=== PATIENT | male | born 1970 ===

== ENCOUNTER 2017-11-11 15:17 | Emergency (ER) | payer OTHER ==
[2017-11-11 15:17] VITALS: BMI 26.6
[2017-11-11 15:33] VITALS: RESP 18; O2SAT 99
[2017-11-11] MEDS ORDERED: Emtricitabine-Tenofovir 200 mg-300 mg Tab PO STA (15:47)
[2017-11-11 16:45] LABS: BASO # 0.1 K/uL (0.0-0.2); BASO % 1.1 % (0.0-2.0); EOS # 0.2 K/uL (0.0-0.7); EOS % 3.2 % (0.0-4.0); HEMOGLOBIN 15.2 g/dL (12.0-18.0); LYMPH % 30.9 % (20.0-40.0); MEAN CELL VOLUME 87.5 fl (80.0-94.0); MEAN CORPUSCULAR HEMOGLOBIN 29.6 pg (27.0-31.0); MEAN CORPUSCULAR HGB CONC 33.8 g/dL (33.0-37.0); MEAN PLATELET VOLUME 8.5 fl (7.2-11.7); MONO # 0.6 K/uL (0.0-0.8); NEUT # 3.7 K/uL (1.8-7.0); NEUT % 55.8 % (50.0-75.0); NRBC % 0.1 % (0.0-0.0); RBC 5.14 Mil/uL (4.40-5.90); RED CELL DISTRIBUTION WIDTH 14.2 % (11.5-14.5); WHITE BLOOD COUNT 6.5 K/uL (4.8-10.8)
[2017-11-11 17:02] LABS: ALB/GLOB RATIO 1.6 (1.0-2.1); ALBUMIN 4.3 g/dL (3.5-5.0); ALT/SGPT 46 U/L (21-72); AST/SGOT 36 U/L (17-59); BLOOD UREA NITROGEN 13 mg/dl (9-20); CALCIUM 9.7 mg/dL (8.4-10.2); GFR AFRICAN-AMERICAN > 60; GFR NON-AFRICAN AMERICAN > 60
--- NOTE | 2017-11-11 17:53 | ED PDOC ---
HPI: General Adult Time Seen by Provider: 11/11/17 15:33 Chief Complaint (Nursing): Medical Clearance Chief Complaint (Provider): HIV exposure History Per: Patient History/Exam Limitations: no limitations Onset/Duration Of Symptoms: Days (x3) Additional Complaint(s): 47 year old male presents to the ED for HIV exposure. Patient states that three nights ago, he had unprotected anal intercourse with another male, acting as the insertive partner, despite knowing his partner was HIV positive. Two days ago, he reports developing a herpes outbreak to his genitals and began taking Valtrex, but ran out yesterday. He notes he does not remember the last time he had an HIV test and his requesting one along with post exposure prophylaxis. Otherwise, denies fever, abdominal pain, and penile injury. PMD: Danyel Faith Past Medical History Reviewed: Historical Data, Nursing Documentation, Vital Signs Vital Signs: Last Vital Signs Temp 98 F 11/11/17 19:00 Pulse 86 11/11/17 19:00 Resp 18 11/11/17 19:00 BP 130/89 11/11/17 19:00 Pulse Ox 99 11/11/17 19:00 - Medical History PMH: Depression, HTN, Hypercholesterolemia, Sexually Transmitted Disease (Herpes ) - Surgical History Surgical History: No Surg Hx - Family History Family History: States: CAD - Social History Current smoker - smoking cessation education provided: No Alcohol: None Drugs: Denies - Home Medications Home Medications: Ambulatory Orders Medication Instructions Recorded [place] Carbonate [[place] 300 mg PO DAILY 12/04/16 Carbonate 300MG] Losartan Potassium 25 mg PO 12/04/16 Modafinil [Provigil] 100 mg PO DAILY 12/04/16 Omeprazole 20 mg PO DAILY 12/04/16 Quetiapine Fumarate [Quetiapine 400 mg PO 12/04/16 Fumarate ER] Levofloxacin [Levaquin] 500 mg PO DAILY #10 tablet 12/22/16 Naproxen [Naprosyn] 500 mg PO BID PRN #30 tab 12/22/16 Dolutegravir Sodium [Tivicay] 1 tab PO DAILY #27 tab 11/11/17 Emtricitabine/Tenofovir (Tdf) 1 tab PO DAILY #27 tablet 11/11/17 [Truvada 200 mg-300 mg Tablet] Famotidine [Pepcid] 40 mg PO DAILY PRN #30 tab 11/11/17 valACYclovir [Valtrex] 500 mg PO BID #7 tab 11/11/17 - Allergies Allergies/Adverse Reactions: Allergies Allergy/AdvReac Type Severity Reaction Status Date / Time No Known Allergies Allergy Verified 12/04/16 08:15 Review of Systems ROS Statement: Except As Marked, All Systems Reviewed And Found Negative Constitutional: Negative for: Fever Gastrointestinal: Negative for: Abdominal Pain Genitourinary Male: Positive for: Other (herpes outbreak, HIV exposure). Negative for: Penile Pain Physical Exam - Reviewed Nursing Documentation Reviewed: Yes Vital Signs Reviewed: Yes - Physical Exam Appears: Positive for: No Acute Distress Skin: Positive for: Normal Color, Warm, Dry Gastrointestinal/Abdominal: Positive for: Normal Exam, Soft. Negative for: Tenderness Neurologic/Psych: Positive for: Alert, Oriented (x3) - Laboratory Results Result Diagrams: 11/11/17 16:30 11/11/17 16:30 - ECG O2 Sat by Pulse Oximetry: 99 (RA) Pulse Ox Interpretation: Normal - Progress ED Course And Treament: Pt. is also requesting refill of his Valtrex 500mg BID. Medical Decision Making Medical Decision Making: Time: 1546 Initial Impression: HIV exposure Initial Plan: --CMP --CBC with differential --Pepcid 40 mg PO --Tivicay 50 mg PO --Truvada 1 tab PO --Rapid HIV screen As per Boubacar sandoval pharmacist, post exposure prophylaxis consists of Tivicay and Truvada for 28 days. Patient made aware of negative HIV results at this time , and all questions were answered. Scribe Attestation: Documented by Katrina Forte acting as a scribe for Rico Marrero PA-C. Provider Scribe Attestation: All medical record entries made by the Scribe were at my direction and personally dictated by me. I have reviewed the chart and agree that the record accurately reflects my personal performance of the history, physical exam, medical decision making, and the department course for this patient. I have also personally directed, reviewed, and agree with the discharge instructions and disposition. Disposition - Clinical Impression Clinical Impression: History of exposure to HIV - Patient ED Disposition Is Patient to be Admitted: Yes - Disposition Referrals: [facility] [Outside] Disposition: Routine/Home Disposition Time: 19:00 Condition: STABLE Additional Instructions: CARLOS VAUGHAN, thank you for letting us take care of you today. Your provider was Dolores Shipley MD and you were treated for POSS HIV. The emergency medical care you received today was directed at your acute symptoms. If you were prescribed any medication, please fill it and take as directed. It may take several days for your symptoms to resolve. Return to the Emergency Department if your symptoms worsen, do not improve, or if you have any other problems. Please contact your doctor or call one of the physicians/clinics you have been referred to that are listed on the Patient Visit Information form that is included in your discharge packet. Bring any paperwork you were given at discharge with you along with any medications you are taking to your follow up visit. Our treatment cannot replace ongoing medical care by a primary care provider outside of the emergency department. Thank you for allowing the [facility] team to be part of your care today. If you had an X-Ray or CT scan: A Radiologist will review the ED reading if any change in treatment is needed we will contact you. If you had a blood, urine, or wound culture: It will take several days for the results, if any change in treatment is needed we will contact you. If you had an STI test: It will take 48 hours for the results. Please call after 1 week if you have not heard back. Prescriptions: Dolutegravir Sodium [Tivicay] 1 tab PO DAILY #27 tab Emtricitabine/Tenofovir (Tdf) [Truvada 200 mg-300 mg Tablet] 1 tab PO DAILY #27 tablet Famotidine [Pepcid] 40 mg PO DAILY PRN #30 tab PRN Reason: Dyspepsia valACYclovir [Valtrex] 500 mg PO BID #7 tab Instructions: HIV/AIDS (DC), Starting Treatment for HIV, HIV Testing Forms: [facility] (Cook Islander) Print Language: YI
[2017-11-11 19:01] VITALS: BP 130/89; PULSE 86; TEMP 98
== END 2017-11-11 19:00 | disposition home or self-care (01) ==
LOC: H.ER 15:17
DX: Z20.6 Contact with and (suspected) exposure to human immunodeficiency virus [HIV] (principal)

== ENCOUNTER 2017-11-14 07:19 | Emergency (ER) | payer OTHER ==
[2017-11-14 07:30] VITALS: BP 118/78; PULSE 100; O2SAT 98; BMI 27.2
--- NOTE | 2017-11-14 07:50 | ED PDOC ---
HPI: CCC, URI, Sore Throat Time Seen by Provider: 11/14/17 07:42 Chief Complaint (Nursing): ENT Problem Chief Complaint (Provider): Throat pain History Per: Patient History/Exam Limitations: no limitations Have you had recent travel within the past 21 days to any of the following countries: [place], [place], [place] or [place]?: No Onset/Duration Of Symptoms: Days (3) Current Symptoms Are (Timing): Still Present Location Of Pain: Ear(s), Throat (right ) Associated Symptoms: Sore Throat. denies: Fever, Chills, Cough, Sputum, Myalgias, Nasal Congestion, Nausea, Vomiting, Diarrhea Additional History Per: Patient Additional Complaint(s): 47yo male, no past medical history, comes to ER with complaint of right sided throat pain radiating to his right ear x 3 days. Patient denies any associated fever, chills, nasal congestion or drainage, or cough. He reports concern as he was recently exposed to HIV through sexual contact; patient is currently taking prophylactic medication. Patient denies swimming recently or putting Q-tips in his ears. He offers no additional medical complaints. Past Medical History Reviewed: Historical Data, Nursing Documentation, Vital Signs Vital Signs: Last Vital Signs Temp 97 F L 11/14/17 07:29 Pulse 100 H 11/14/17 07:29 Resp BP 118/78 11/14/17 07:29 Pulse Ox 98 11/14/17 08:29 - Medical History PMH: Depression, HTN, Hypercholesterolemia, Sexually Transmitted Disease (Herpes ), Sleep Apnea Comment Only: HIV (exposed through sexual contact 11/08/17) - Surgical History Surgical History: No Surg Hx - Family History Family History: States: CAD - Social History Alcohol: Social - Immunization History Hx Tetanus Toxoid Vaccination: Yes Hx Influenza Vaccination: Yes Hx Pneumococcal Vaccination: No - Home Medications Home Medications: Ambulatory Orders Medication Instructions Recorded [place] Carbonate [[place] 300 mg PO DAILY 12/04/16 Carbonate 300MG] Losartan Potassium 25 mg PO 12/04/16 Modafinil [Provigil] 100 mg PO DAILY 12/04/16 Omeprazole 20 mg PO DAILY 12/04/16 Quetiapine Fumarate [Quetiapine 400 mg PO 12/04/16 Fumarate ER] Levofloxacin [Levaquin] 500 mg PO DAILY #10 tablet 12/22/16 Naproxen [Naprosyn] 500 mg PO BID PRN #30 tab 12/22/16 Dolutegravir Sodium [Tivicay] 1 tab PO DAILY #27 tab 11/11/17 Emtricitabine/Tenofovir (Tdf) 1 tab PO DAILY #27 tablet 11/11/17 [Truvada 200 mg-300 mg Tablet] Famotidine [Pepcid] 40 mg PO DAILY PRN #30 tab 11/11/17 valACYclovir [Valtrex] 500 mg PO BID #7 tab 11/11/17 Lidocaine 2% Viscous 10 ml MM Q4H PRN #1 bottle 11/14/17 - Allergies Allergies/Adverse Reactions: Allergies Allergy/AdvReac Type Severity Reaction Status Date / Time No Known Allergies Allergy Verified 12/04/16 08:15 Review of Systems ROS Statement: Except As Marked, All Systems Reviewed And Found Negative Constitutional: Negative for: Fever, Chills ENT: Positive for: Ear Pain, Throat Pain. Negative for: Nose Discharge, Nose Congestion Cardiovascular: Negative for: Chest Pain Respiratory: Negative for: Cough Physical Exam - Reviewed Nursing Documentation Reviewed: Yes Vital Signs Reviewed: Yes - Physical Exam Appears: Positive for: Non-toxic, No Acute Distress Head Exam: Positive for: ATRAUMATIC, NORMAL INSPECTION, NORMOCEPHALIC Skin: Positive for: Normal Color Eye Exam: Positive for: Normal appearance ENT: Positive for: Normal ENT Inspection, Pharynx Is (clear; uvula is midline), TM Is/Are (clear bilaterally), Other ((-) tragal tenderness; (-) mastoid tenderness). Negative for: Pharyngeal Erythema, Tonsillar Exudate, Tonsillar Swelling Neck: Positive for: Supple (tenderness to palpation on right anterior neck; sensitive to touch) Cardiovascular/Chest: Positive for: Regular Rate, Rhythm Respiratory: Positive for: Normal Breath Sounds Lymphatic: Negative for: Adenopathy Neurologic/Psych: Positive for: Alert, Oriented - ECG O2 Sat by Pulse Oximetry: 98 (RA) Pulse Ox Interpretation: Normal - Progress Condition: Improving,but remains with symptoms (Rapid Strep is negative. Throat culture pending. will discharge) Medical Decision Making Medical Decision Making: Impression: Throat pain Plan: -- Rapid strep -- Magic Mouthwash 15ml PO Scribe Attestation: Documented by Tamara Carlson, acting as a scribe for Shireen Lerner MD. Provider Scribe Attestation: All medical record entries made by the Scribe were at my direction and personally dictated by me. I have reviewed the chart and agree that the record accurately reflects my personal performance of the history, physical exam, medical decision making, and the department course for this patient. I have also personally directed, reviewed, and agree with the discharge instructions and disposition. Disposition - Clinical Impression Clinical Impression: Sore throat - Patient ED Disposition Is Patient to be Admitted: No Doctor Will See Patient In The: Office Counseled Patient/Family Regarding: Diagnosis, Need For Followup, Rx Given - Disposition Referrals: [facility] [Outside] Disposition: Routine/Home Disposition Time: 08:20 Condition: STABLE Additional Instructions: Thank you for letting us take care of you today. The emergency medical care you received today was directed at your acute symptoms. If you were prescribed any medication, please fill it and take as directed. It may take several days for your symptoms to resolve. Return to the Emergency Department if your symptoms worsen, do not improve, or if you have any other problems. Please contact your doctor or call one of the physicians/clinics you have been referred to that are listed on the Patient Visit Information form that is included in your discharge packet. Bring any paperwork you were given at discharge with you along with any medications you are taking to your follow up visit. Our treatment cannot replace ongoing medical care by a primary care provider outside of the emergency department. Thank you for allowing the [facility] team to be part of your care today. If you had an X-Ray or CT scan: A Radiologist will review the ED reading if any change in treatment is needed we will contact you. If you had a blood, urine, or wound culture: It will take several days for the results, if any change in treatment is needed we will contact you. If you had an STI test: It will take 48 hours for the results. Please call after 1 week if you have not heard back. Prescriptions: Lidocaine 2% Viscous 10 ml MM Q4H PRN #1 bottle PRN Reason: Sore Throat Instructions: Sore Throat in Adults Forms: [facility] (Togolese)
[2017-11-14] MEDS ORDERED: Mag&Al/Simet/Diphen/Lido 237 ML KIT PO STA (07:53)
[2017-11-14 08:44] VITALS: TEMP 98.7
== END 2017-11-14 08:44 | disposition home or self-care (01) ==
LOC: H.ER 07:19
DX: J02.9 Acute pharyngitis, unspecified (principal)

== ENCOUNTER 2017-12-24 14:43 | Emergency (ER) | payer BC, OTHER ==
[2017-12-24 14:44] VITALS: BMI 27.2
[2017-12-24] MEDS ORDERED: Sodium Chloride 0.9% 1,000 ML IV STA (15:15)
--- NOTE | 2017-12-24 15:32 | ED PDOC ---
HPI: Hypertension/Hypotension Time Seen by Provider: 12/24/17 14:59 Chief Complaint (Nursing): Palpitations Chief Complaint (Provider): palpitations History Per: Patient History/Exam Limitations: no limitations Onset/Duration Of Symptoms: Days (x3) Current Symptoms Are (Timing): Still Present Associated Symptoms: denies: Chest Pain, Dyspnea, Dizziness Additional Complaint(s): Margot Rasheed is a 47 year old male, with a past medical history of HTN, who was referred to the emergency department by PMD for palpitations onset for x3 days. Patient has a heart monitor at home which indicates palpitations intermittently throughout the day. He reports travelling to [facility] by plane x1 month ago but denies any leg pain or swelling. Patient denies any dizziness, shortness of breath or occasional sharp chest pains during episodes of palpitations. PMD: Danyel Faith Past Medical History Reviewed: Historical Data, Nursing Documentation, Vital Signs Vital Signs: Last Vital Signs Temp 97.8 F 12/24/17 14:48 Pulse 118 H 12/24/17 14:48 Resp 18 12/24/17 14:48 BP 145/94 H 12/24/17 14:48 Pulse Ox 99 12/24/17 14:48 - Medical History PMH: Depression, HTN, Hypercholesterolemia, Sexually Transmitted Disease (Herpes ), Sleep Apnea Comment Only: HIV (exposed through sexual contact 11/08/17) - Surgical History Surgical History: No Surg Hx - Family History Family History: States: CAD - Immunization History Hx Tetanus Toxoid Vaccination: Yes Hx Influenza Vaccination: Yes Hx Pneumococcal Vaccination: No - Home Medications Home Medications: Ambulatory Orders Medication Instructions Recorded [place] Carbonate [[place] 300 mg PO DAILY 12/04/16 Carbonate 300MG] Losartan Potassium 25 mg PO 12/04/16 Modafinil [Provigil] 100 mg PO DAILY 12/04/16 Omeprazole 20 mg PO DAILY 12/04/16 Quetiapine Fumarate [Quetiapine 400 mg PO 12/04/16 Fumarate ER] Levofloxacin [Levaquin] 500 mg PO DAILY #10 tablet 12/22/16 Naproxen [Naprosyn] 500 mg PO BID PRN #30 tab 12/22/16 Dolutegravir Sodium [Tivicay] 1 tab PO DAILY #27 tab 11/11/17 Emtricitabine/Tenofovir (Tdf) 1 tab PO DAILY #27 tablet 11/11/17 [Truvada 200 mg-300 mg Tablet] Famotidine [Pepcid] 40 mg PO DAILY PRN #30 tab 11/11/17 valACYclovir [Valtrex] 500 mg PO BID #7 tab 11/11/17 Lidocaine 2% Viscous 10 ml MM Q4H PRN #1 bottle 11/14/17 Atenolol [Tenormin] 50 mg PO DAILY #30 tablet 12/24/17 - Allergies Allergies/Adverse Reactions: Allergies Allergy/AdvReac Type Severity Reaction Status Date / Time No Known Allergies Allergy Verified 12/04/16 08:15 Review of Systems ROS Statement: Except As Marked, All Systems Reviewed And Found Negative Cardiovascular: Positive for: Palpitations. Negative for: Chest Pain Respiratory: Negative for: Shortness of Breath Musculoskeletal: Negative for: Leg Pain (or swelling) Neurological: Negative for: Dizziness Physical Exam - Reviewed Nursing Documentation Reviewed: Yes Vital Signs Reviewed: Yes - Physical Exam Appears: Positive for: No Acute Distress Head Exam: Positive for: ATRAUMATIC, NORMOCEPHALIC Skin: Positive for: Normal Color, Warm, Dry Eye Exam: Positive for: Normal appearance, EOMI, PERRL Neck: Positive for: Painless ROM Cardiovascular/Chest: Positive for: Tachycardia (at 115 with occasional PVCs noted on monitor) Respiratory: Positive for: Normal Breath Sounds. Negative for: Respiratory Distress Gastrointestinal/Abdominal: Positive for: Normal Exam, Soft. Negative for: Tenderness, Guarding, Rebound Back: Positive for: Normal Inspection Extremity: Positive for: Normal ROM (upper and lower extremities). Negative for : Deformity Neurologic/Psych: Positive for: Alert, Oriented. Negative for: Motor/Sensory Deficits - Laboratory Results Result Diagrams: 12/24/17 15:36 12/24/17 15:36 - ECG O2 Sat by Pulse Oximetry: 99 (RA) Pulse Ox Interpretation: Normal Medical Decision Making Medical Decision Making: Time: 14:59 Initial Plan: --EKG --CMP --Troponin I --CBC w/ differential --D Dimer --Sodium Chloride 1,000 ml IV 150 mls/hr --Urinalysis --Reevaluation Discussed with Dr. Faith. EKG reveals sinus tachycardia with occasional PVCs. Nl Trop and d -dimer. Asks to switch Losartan to [id number] mg daily and follow up in office. ----- Scribe Attestation: Documented by Anjel Bonds, acting as a scribe for Franco Victor MD. Provider Scribe Attestation: All medical record entries made by the Scribe were at my direction and personally dictated by me. I have reviewed the chart and agree that the record accurately reflects my personal performance of the history, physical exam, medical decision making, and the department course for this patient. I have also personally directed, reviewed, and agree with the discharge instructions and disposition. Disposition - Clinical Impression Clinical Impression: Palpitations - Patient ED Disposition Is Patient to be Admitted: No Counseled Patient/Family Regarding: Studies Performed, Diagnosis, Need For Followup, Rx Given - Disposition Referrals: Danyel Faith MD [Family Provider] - Disposition: Routine/Home Disposition Time: 16:41 Condition: FAIR Prescriptions: Atenolol [Tenormin] 50 mg PO DAILY #30 tablet Instructions: Palpitations Forms: [employer] [facility] (Croatian)
[2017-12-24 15:43] LABS: BASO # 0.1 K/uL (0.0-0.2); BASO % 1.1 % (0.0-2.0); EOS # 0.2 K/uL (0.0-0.7); EOS % 3.2 % (0.0-4.0); HEMOGLOBIN 14.7 g/dL (12.0-18.0); LYMPH # 1.8 K/uL (1.0-4.3); LYMPH % 24.1 % (20.0-40.0); MEAN CELL VOLUME 87.1 fl (80.0-94.0); MEAN CORPUSCULAR HEMOGLOBIN 29.8 pg (27.0-31.0); MEAN CORPUSCULAR HGB CONC 34.3 g/dL (33.0-37.0); MEAN PLATELET VOLUME 8.4 fl (7.2-11.7); MONO # 0.5 K/uL (0.0-0.8); MONO % 6.2 % (0.0-10.0); NEUT # 4.9 K/uL (1.8-7.0); NEUT % 65.4 % (50.0-75.0); RBC 4.91 Mil/uL (4.40-5.90); RED CELL DISTRIBUTION WIDTH 14.9 % (11.5-14.5); WHITE BLOOD COUNT 7.5 K/uL (4.8-10.8)
[2017-12-24 16:00] LABS: URINE BILIRUBIN NEGATIVE (NEGATIVE); URINE BLOOD MODERATE (NEGATIVE); URINE CLARITY CLEAR (Clear); URINE COLOR YELLOW (YELLOW); URINE GLUCOSE (UA) NEG (Normal); URINE LEUKOCYTE ESTERASE NEG Leu/uL (Negative); URINE PROTEIN NEGATIVE (NEGATIVE); URINE UROBILINOGEN 0.2-1.0 mg/dL (0.2-1.0)
[2017-12-24 16:08] LABS: ALB/GLOB RATIO 1.3 (1.0-2.1); ALBUMIN 4.1 g/dL (3.5-5.0); BLOOD UREA NITROGEN 17 mg/dl (9-20); GFR NON-AFRICAN AMERICAN > 60
[2017-12-24 16:15] LABS: ALT/SGPT 74 U/L (21-72); AST/SGOT 45 U/L (17-59)
[2017-12-24] MEDS ORDERED: Potassium Chloride 20 mEq ER Tab PO ONE ×2 (16:18→16:47)
[2017-12-24 16:53] VITALS: BP 133/74; PULSE 102; RESP 16; TEMP 98.1; O2SAT 100
--- NOTE | 2017-12-24 17:52 | RAD ---
Date of service: 12/24/2017 HISTORY: Cough. COMPARISON: No prior. FINDINGS: LUNGS: No active pulmonary disease. PLEURA: No significant pleural effusion identified, no pneumothorax apparent. CARDIOVASCULAR: No radiographic findings to suggest acute or significant cardiovascular disease. OSSEOUS STRUCTURES: No significant abnormalities. VISUALIZED UPPER ABDOMEN: Normal. OTHER FINDINGS: None. IMPRESSION: No active disease.
--- NOTE | 2017-12-25 09:17 | CARD ---
APPROVED REPORT Date of service: 12/24/2017 <Conclusion> Sinus tachycardia Otherwise normal ECG
== END 2017-12-24 16:53 | disposition home or self-care (01) ==
LOC: H.ER 14:43
DX: R00.2 Palpitations (principal); I10 Essential (primary) hypertension; Z86.59 Personal history of other mental and behavioral disorders; Z82.49 Family history of ischemic heart disease and other diseases of the circulatory system
CPT/HCPCS: 71045; 80053; 81003; 84484; 85025; 85378; 93005; 99283; J7030

== ENCOUNTER 2018-02-06 11:27 | Inpatient (IN) | payer OTHER ==
[2018-02-06 11:27] VITALS: BMI 27.2
[2018-02-06 11:45] VITALS: O2SAT 98
--- NOTE | 2018-02-06 12:07 | ED PDOC ---
HPI: Psych/Substance Abuse Time Seen by Provider: 02/06/18 11:47 Chief Complaint (Nursing): Psychiatric Evaluation Chief Complaint (Provider): Psychiatric Evaluation History Per: Patient History/Exam Limitations: no limitations Onset/Duration Of Symptoms: Days (x2) Current Symptoms Are (Timing): Still Present Additional Complaint(s): 47 year old male presenting for evaluation of anxiety x2 days. Patient states he has been unable to sleep for the past 2 days because he ran out of Seroquel. Patient denies any suicidal or homicidal ideations and auditory or visual zaina lucinations. Past Medical History Reviewed: Historical Data, Nursing Documentation, Vital Signs Vital Signs: Last Vital Signs Temp 97.9 F 02/06/18 11:39 Pulse 89 02/06/18 11:39 Resp 16 02/06/18 11:39 BP 155/83 H 02/06/18 11:39 Pulse Ox 98 02/06/18 11:39 - Medical History PMH: Depression, HTN, Hypercholesterolemia, Sexually Transmitted Disease (Herpes), Sleep Apnea Comment Only: HIV (exposed through sexual contact 11/08/17) - Surgical History Surgical History: No Surg Hx - Family History Family History: States: CAD - Immunization History Hx Tetanus Toxoid Vaccination: Yes Hx Influenza Vaccination: Yes Hx Pneumococcal Vaccination: No - Home Medications Home Medications: Ambulatory Orders Medication Instructions Recorded [place] Carbonate [[place] 300 mg PO DAILY 12/04/16 Carbonate 300MG] Losartan Potassium 25 mg PO 12/04/16 Modafinil [Provigil] 100 mg PO DAILY 12/04/16 Omeprazole 20 mg PO DAILY 12/04/16 Quetiapine Fumarate [Quetiapine 400 mg PO 12/04/16 Fumarate ER] Levofloxacin [Levaquin] 500 mg PO DAILY #10 tablet 12/22/16 Naproxen [Naprosyn] 500 mg PO BID PRN #30 tab 12/22/16 Dolutegravir Sodium [Tivicay] 1 tab PO DAILY #27 tab 11/11/17 Emtricitabine/Tenofovir (Tdf) 1 tab PO DAILY #27 tablet 11/11/17 [Truvada 200 mg-300 mg Tablet] Famotidine [Pepcid] 40 mg PO DAILY PRN #30 tab 11/11/17 valACYclovir [Valtrex] 500 mg PO BID #7 tab 11/11/17 Lidocaine 2% Viscous 10 ml MM Q4H PRN #1 bottle 11/14/17 Atenolol [Tenormin] 50 mg PO DAILY #30 tablet 12/24/17 - Allergies Allergies/Adverse Reactions: Allergies Allergy/AdvReac Type Severity Reaction Status Date / Time No Known Allergies Allergy Verified 02/06/18 11:35 Review of Systems ROS Statement: Except As Marked, All Systems Reviewed And Found Negative Psych: Positive for: Anxiety. Negative for: Psychosis, Suicidal ideation Physical Exam - Reviewed Nursing Documentation Reviewed: Yes Vital Signs Reviewed: Yes - Physical Exam Appears: Positive for: Well, Non-toxic, No Acute Distress Head Exam: Positive for: ATRAUMATIC, NORMAL INSPECTION, NORMOCEPHALIC Skin: Positive for: Normal Color, Warm, Dry. Negative for: Rash Eye Exam: Positive for: EOMI, Normal appearance, PERRL ENT: Positive for: Normal ENT Inspection Neck: Positive for: Normal, Painless ROM, Supple Cardiovascular/Chest: Positive for: Regular Rate, Rhythm. Negative for: Murmur Respiratory: Positive for: Normal Breath Sounds. Negative for: Respiratory Distress Gastrointestinal/Abdominal: Positive for: Normal Exam, Soft. Negative for: Tenderness Back: Positive for: Normal Inspection. Negative for: L CVA Tenderness, R CVA Tenderness, Vertebral Tenderness Extremity: Positive for: Normal ROM. Negative for: Pedal Edema, Deformity Neurologic/Psych: Positive for: Alert, Oriented. Negative for: Motor/Sensory Deficits - ECG O2 Sat by Pulse Oximetry: 98 (RA) Pulse Ox Interpretation: Normal Medical Decision Making Medical Decision Making: Scribe Attestation: Documented by Omega Nix, acting as a scribe for Franco Victor MD. Provider Scribe Attestation: All medical record entries made by the Scribe were at my direction and personally dictated by me. I have reviewed the chart and agree that the record accurately reflects my personal performance of the history, physical exam, medical decision making, and the department course for this patient. I have also personally directed, reviewed, and agree with the discharge instructions and disposition. Medically stable for psychiatric admission Disposition - Clinical Impression Clinical Impression: Depression - Patient ED Disposition Is Patient to be Admitted: Yes - Disposition Disposition Time: 12:31 Condition: FAIR Forms: [facility] (Czech) - Pt Status Changed To: Hospital Disposition Of: Inpatient - Admit Certification Admit to Inpatient:: After my assessment, the patient will require hospitalization for at least two midnights. This is because of the severity of symptoms shown, intensity of services needed, and/or the medical risk in this patient being treated as an outpatient. - POA Present On Arrival: None
[2018-02-06 12:54] LABS: BASO # 0.1 K/uL (0.0-0.2); EOS # 0.1 K/uL (0.0-0.7); HEMOGLOBIN 15.7 g/dL (12.0-18.0); LYMPH # 1.4 K/uL (1.0-4.3); LYMPH % 20.7 % (20.0-40.0); MEAN CELL VOLUME 88.3 fl (80.0-94.0); MEAN CORPUSCULAR HEMOGLOBIN 29.8 pg (27.0-31.0); MEAN CORPUSCULAR HGB CONC 33.7 g/dL (33.0-37.0); MEAN PLATELET VOLUME 7.8 fl (7.2-11.7); MONO # 0.4 K/uL (0.0-0.8); MONO % 5.6 % (0.0-10.0); NEUT # 4.8 K/uL (1.8-7.0); NEUT % 71.7 % (50.0-75.0); NRBC % 0.1 % (0.0-0.0); RBC 5.28 Mil/uL (4.40-5.90); WHITE BLOOD COUNT 6.7 K/uL (4.8-10.8)
[2018-02-06 12:59] LABS: ALB/GLOB RATIO 1.4 (1.0-2.1); ALBUMIN 4.4 g/dL (3.5-5.0); ALT/SGPT 48 U/L (21-72); AST/SGOT 41 U/L (17-59); BLOOD UREA NITROGEN 13 mg/dl (9-20); CALCIUM 9.7 mg/dL (8.4-10.2); GFR NON-AFRICAN AMERICAN > 60
[2018-02-06 13:36] LABS: PHENCYCLIDINE, UR NEGATIVE (NEGATIVE)
--- NOTE | 2018-02-06 13:45 | RAD ---
Date of service: 02/06/2018 HISTORY: cough COMPARISON: Chest radiograph dated 12/24/2017. FINDINGS: LUNGS: No active pulmonary disease. PLEURA: No significant pleural effusion identified, no pneumothorax apparent. CARDIOVASCULAR: No aortic atherosclerotic calcification present. Normal cardiac size. No pulmonary vascular congestion. OSSEOUS STRUCTURES: No significant abnormalities. VISUALIZED UPPER ABDOMEN: Normal. OTHER FINDINGS: None. IMPRESSION: No active disease.
[2018-02-06] MEDS ORDERED: Alum-Mag Hydrox-Simethicone Susp (30 mL) PO PRN (13:47)
[2018-02-06] MEDS ORDERED: DiphenhydrAMINE 50 mg/ml Inj IM PRN (13:47)
[2018-02-06] MEDS ORDERED: Magnesium Hydroxide Susp 30 ml UD PO PRN (13:47)
[2018-02-06 13:56] LABS: BARBITURATES, UR NEGATIVE (NEGATIVE); BENZODIAZEPINES, UR NEGATIVE (NEGATIVE); OPIATES, UR NEGATIVE (NEGATIVE)
--- NOTE | 2018-02-06 16:34 | PCM.BM ---
<NikkipieterMeaghan - Last Filed: 02/06/18 16:31> Treatment Plan Problems - Problems identified on initial assessmt Hopelessness/Helplessness Date Initiated: 02/06/18 Time Initiated: 16:32 Assessment reference: NA Status: Active Medication nonadherence Date Initiated: 02/06/18 Time Initiated: 16:34 Assessment reference: NA Status: Active Treatment assets and liabiliti Patient Assests: adapts well, cooperative, motivated, ADL independent, cognitively intact Patient Liabilities: live alone, financial problems, poor support system - Milieu Protocol Maintain good personal hygiene: daily Encourage regular showers, daily Remind patient to perform daily oral care, daily Assist patient to perform ADL's Conduct patient checks and document Observation sheet: Q15 minutes Maintain personal safety: every shift Educate patient to report safety concerns to staff, every shift Monitor environment for contraband/sharps Medication safety: Monitor for expected outcome, potential side effects: every shift, Assess barriers to learning: every shift, Assess readiness for medication education: every shift <Nilda Seth - Last Filed: 02/07/18 11:30> - Diagnosis (1) Bipolar disorder Status: Acute Interventions: Medication management, Individual and group therapy, Psychoeducation 02/07/18 11:30
--- NOTE | 2018-02-07 06:56 | CARD ---
APPROVED REPORT Date of service: 02/06/2018 EKG Measurement Heart [id number] <Conclusion> Normal sinus rhythm Normal ECG
[2018-02-07 07:30] LABS: BASO # 0.1 K/uL (0.0-0.2); EOS # 0.1 K/uL (0.0-0.7); EOS % 2.6 % (0.0-4.0); HEMOGLOBIN 14.9 g/dL (12.0-18.0); LYMPH # 2.3 K/uL (1.0-4.3); LYMPH % 41.2 % (20.0-40.0); MEAN CORPUSCULAR HEMOGLOBIN 29.6 pg (27.0-31.0); MEAN CORPUSCULAR HGB CONC 33.7 g/dL (33.0-37.0); MONO # 0.5 K/uL (0.0-0.8); MONO % 9.4 % (0.0-10.0); NEUT # 2.5 K/uL (1.8-7.0); NEUT % 45.8 % (50.0-75.0); NRBC % 0.1 % (0.0-0.0); RBC 5.05 Mil/uL (4.40-5.90); RED CELL DISTRIBUTION WIDTH 13.8 % (11.5-14.5); WHITE BLOOD COUNT 5.5 K/uL (4.8-10.8)
[2018-02-07 08:04] LABS: T4 5.89 ug/dl (5.5-11.0)
[2018-02-07] MEDS: Pantoprazole 40 mg EC Tab PO SCH (08:31)
--- NOTE | 2018-02-07 10:12 | PCM.PSYCH ---
Initial Psychiatric Evaluation - Initial Psychiatric Evaluation Type of Admission: Voluntary Legal Status: Capacity Chief Complaint (in patient's own words): "I'm depressed." Patient's Reaction to Hospitalization: HPI: 47 yo male w/ h/o Depressive Disorder vs. Bipolar Disorder, presents w/ worsening depression, poor sleep, feelings of helplessness, poor concentration, lack of motivation and intermittent suicidal ideation w/o plan or intent. No AH/VH/paranoia/delusions. Patient recently ran out of his [employer]. Patient submitted a 48 hour letter, stating that he can not be in the hospital for an extended period of time because he has to work. PPHx: No past psychiatric admissions, h/o treatment with various antidepressants (including Zoloft and Wellbutrin) and mood stabilizers ([place], Depakote, Seroquel). PMHx: Sleep apnea, HTN, GERD ALL: NKDA SHx: Denies drugs/ etoh/ cig use; lives alone Current Medications: Active Medications Generic Name Dose Route Start Last Admin Trade Name Freq PRN Reason Stop Dose Admin Acetaminophen 650 mg 02/06/18 13:47 Tylenol 325mg Tab PO Q4 PRN Pain, moderate (4-7) Al Hydrox/Mg Hydrox/Simethicone 30 ml 02/06/18 13:47 Maalox Plus 30 Ml PO Q4 PRN Dyspepsia Atenolol 25 mg 02/07/18 09:00 02/07/18 08:31 Tenormin PO 25 mg DAILY NICOLÁS Administration Diphenhydramine HCl 50 mg 02/06/18 13:47 Benadryl IM Q6 PRN Extrapyramidal S/S Unable PO Diphenhydramine HCl 50 mg 02/06/18 13:47 Benadryl PO Q6 PRN Extrapyramidal Symptoms Diphenhydramine HCl 50 mg 02/06/18 22:03 02/06/18 22:14 Benadryl PO 50 mg HS PRN Administration Sleep Haloperidol 5 mg 02/06/18 13:47 Haldol PO Q4 PRN Agitation Haloperidol Lactate 5 mg 02/06/18 13:47 Haldol IM Q4 PRN Agitation, Unable to Take PO Lorazepam 2 mg 02/06/18 13:47 Ativan IM Q4 PRN Anxiety/Agitation,Unable PO Lorazepam 2 mg 02/06/18 14:15 Ativan PO Q4 PRN Anxiety/Agitation Losartan Potassium 25 mg 02/07/18 09:00 02/07/18 08:31 Cozaar PO 25 mg DAILY NICOLÁS Administration Magnesium Hydroxide 30 ml 02/06/18 13:47 Milk Of Magnesia PO HS PRN Constipation Pantoprazole Sodium 40 mg 02/07/18 09:00 02/07/18 08:31 Protonix Ec Tab PO 40 mg DAILY NICOLÁS Administration Quetiapine Fumarate 300 mg 02/06/18 22:00 02/06/18 21:15 Seroquel PO 300 mg HS NICOLÁS Administration Past Psychiatric History - Past Psychiatric History Pertinent Medical Hx (Current Medical&Sleep Prob, Allergies): Allergies Allergy/AdvReac Type Severity Reaction Status Date / Time No Known Allergies Allergy Verified 02/06/18 11:35 Atenolol [Tenormin] 25 mg PO DAILY 02/06/18 Losartan [Cozaar] 25 mg PO DAILY 02/06/18 Pantoprazole Sodium [Protonix] 40 mg PO DAILY 02/06/18 Quetiapine Fumarate [Seroquel] 600 mg PO HS 02/06/18 Review of Systems - Psychiatric Psychiatric: As Per HPI, Abnormal Sleep Pattern, Anxiety, Change in Appetite, Depression, Difficulty Concentrating, Hopelessness, Irritability, Mood Swings, Panic Attacks, Suicidal Ideation Mental Status Examination - Personal Presentation Personal Presentation: Looks stated age - Affect Affect: Constricted, Depressed - Motor Activity Motor Activity: Calm - Reliability in Providing Information Reliability in Providing Information: Fair - Speech Speech: Organized - Mood Mood: Depressed - Formal Thought Process Formal Thought Process: No Impairment - Hallucinations/Delusions Additional comments: No AH/VH/paranoia/delusions - Obsessions/Compulsions Obsessions: No Compulsions: No - Cognitive Functions Orientation: Person, Place, Situation, Time Sensorium: Alert Attention/Concentration: Attentive Estimate of Intelligence: Average Judgement: Intact, as evidence by: Insight regarding need for hospitalization Memory: Recent intact, as evidence by: Ability to recall events of the day - Risk Risk: Suicidal - Strength & Assets Inventory Strength & Assets Inventory: Cooperative - Limitations Limitations: Living alone DSM 5 DX - DSM 5 DSM 5 Diagnosis: Bipolar Disorder - Recommended/Plan of Treatment Treatment Recommendations and Plan of Treatment: Bipolar Disorder -Admit to psychiatry unit -Restart Seroquel -Individual and group therapy -Medicine consult -Disposition planning Discharge Plan and Discharge Criteria: Discharge when patient is psychiatrically stable - Smoking Cessation Smoking Cessation Initiated: No Reason for not providing: Not indicated
[2018-02-08 06:37] VITALS: RESP 18; TEMP 97.7
--- NOTE | 2018-02-08 08:09 | PCM.PYCHDC ---
Mental Status Examination - Mental Status Examination Orientation: Person, Place, Situation, Time Memory: Intact Mood: Neutral Affect: Broad Speech: Appropriate Attention: WNL Concentration: WNL Association: WNL Fund of Knowledge: WNL Formal Thought Process: No Impairment Description of patient's judgement and insight: Improved I/J Psychotic Thoughts and Behaviors: No AH/VH/paranoia/delusions Suicidal Ideation: No Current Homicidal Ideation?: No Discharge Summary - Discharge Note Reason for Hospitalization: HPI: 47 yo male w/ h/o Depressive Disorder vs. Bipolar Disorder, presents w/ worsening depression, poor sleep, feelings of helplessness, poor concentration, lack of motivation and intermittent suicidal ideation w/o plan or intent. No AH/VH/paranoia/delusions. Patient recently ran out of his Seroquel. Patient submitted a 48 hour letter, stating that he can not be in the hospital for an extended period of time because he has to work. PPHx: No past psychiatric admissions, h/o treatment with various antidepressants (including Zoloft and Wellbutrin) and mood stabilizers ([place], Depakote, Seroquel). PMHx: Sleep apnea, HTN, GERD ALL: NKDA SHx: Denies drugs/ etoh/ cig use; lives alone Laboratory Data: Abnormal Lab Results 02/07/18 02/07/18 02/07/18 07:15 07:15 07:15 Hemoglobin A1c 5.3 Thyroxine (T4) 5.89 TSH 3rd Generation 2.55 RPR Nonreactive Consultations:: List each consultation separately and include: 1. Reason for request. 2. Findings. 3. Follow-up Consultations: Medicine consult Summary of Hospital Course include:: 1. Description of specific treatment plan utilized for patients during their course of treatmen. 2. Summarize the time- course for resolution of acute symptoms and/or regressed behaviors. 3. Describe issues identified and worked on during hospitalization. 4. Describe medication utilized. 5. Describe medical problems identified and treated. 6. Reassessment of suicide risk Summary of Hospital Course: Patient admitted to the psychiatry unit. Individual and group therapy were provided. Patient was restarted on Seroquel. He submitted a 48 hr letter requesting to be discharge and he does not currently meet criteria for involuntary psychiatric commitment. Patient will be discharged with outpatient psychiatric follow-up. He denies acute depression/anxiety/AH/VH/SI/HI. - Diagnosis (1) Bipolar disorder Current Visit: Yes Status: Chronic - Final Diagnosis (DSM 5) Condition upon Discharge: STABLE DSM 5: Bipolar Disorder Disposition: HOME/ ROUTINE Follow-up Treatment Plan: Bipolar Disorder -Continue Seroquel 600 mg PO HS -Discharge w/ outpatient follow-up Prescriptions/Medication Reconciliation: Quetiapine Fumarate [Seroquel] 600 mg PO HS #60 tablet - Smoking Cessation Smoking Cessation Medication prescribed: No Reason for not providing: Not indicated - Antipsychotic Medications Pt discharged on 2 or more routine antipsychotic medications: No
[2018-02-08] MEDS: Pantoprazole 40 mg EC Tab PO SCH (08:50)
[2018-02-08 08:51] VITALS: BP 125/80; PULSE 85
== END 2018-02-08 09:55 | disposition home or self-care (01) | DRG 430 ==
LOC: H.ER 11:27 → H.ERHOLD 12:29 → H.STEP 15:29
PROVIDERS: ADMIT Psychiatry & Neurology Psychiatry; ATTEND Psychiatry & Neurology Psychiatry
PROC: GZHZZZZ Group Psychotherapy (ICD-10-PCS; principal; 2018-02-06)
PROC: GZ58ZZZ Individual Psychotherapy, Cognitive-Behavioral (ICD-10-PCS; 2018-02-06)
DX: F31.9 Bipolar disorder, unspecified (principal); F41.9 Anxiety disorder, unspecified; G47.30 Sleep apnea, unspecified; K21.9 Gastro-esophageal reflux disease without esophagitis; I10 Essential (primary) hypertension; E78.00 Pure hypercholesterolemia, unspecified; Z86.19 Personal history of other infectious and parasitic diseases

== ENCOUNTER 2018-04-17 14:41 | Emergency (ER) | payer MEDICAID, OTHER ==
[2018-04-17 14:41] VITALS: BMI 27.2
--- NOTE | 2018-04-17 15:43 | ED PDOC ---
HPI: Influenza Time Seen by Provider: 04/17/18 15:40 Chief Complaint: Flu-like Symptoms Chief Complaint (Provider): Flu-like Symptoms History Per: Patient Exam Limitations: no limitations Onset/Duration Of Symptoms: Days Additional complaint(s):: Patient is a 47 y/o with a PMHx of HTN, hypercholesterolemia, depression, chronic kidney disease, STD, and sleep apnea who presents to the ED for nilson luation of nausea, vomiting, and diarrhea ongoing for the past three weeks. Patient complains of vomiting earlier today thus prompting his ED visit. Patient reports both his vomit and diarrhea are watery. Patient also claims to be experiencing a headache. Patient denies cough or abdominal pain. PCP: Dr. 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 sexual contact 11/08/17) - Surgical History Surgical History: No Surg Hx - Family History Family History: States: CAD - Social History Current smoker - smoking cessation education provided: No - Immunization History Hx Tetanus Toxoid Vaccination: Yes Hx Influenza Vaccination: Yes Hx Pneumococcal Vaccination: No - Home Medications Home Medications: Ambulatory Orders Medication Instructions Recorded Atenolol [Tenormin] 25 mg PO DAILY 02/06/18 Losartan [Cozaar] 25 mg PO DAILY 02/06/18 Pantoprazole Sodium [Protonix] 40 mg PO DAILY 02/06/18 Quetiapine Fumarate [Seroquel] 600 mg PO HS #60 tablet 02/07/18 Metronidazole 500 mg PO BID #14 tablet 04/17/18 Ondansetron ODT [Zofran ODT] 4 mg PO PRN PRN #12 odt 04/17/18 - Allergies Allergies/Adverse Reactions: Allergies Allergy/AdvReac Type Severity Reaction Status Date / Time No Known Allergies Allergy Verified 02/06/18 11:35 Review of Systems ROS Statement: Except As Marked, All Systems Reviewed And Found Negative ENT: Negative for: Ear Pain Respiratory: Negative for: Cough Gastrointestinal: Positive for: Nausea, Vomiting (watery), Diarrhea (watery). Negative for: Abdominal Pain Neurological: Positive for: Headache Physical Exam - Reviewed Nursing Documentation Reviewed: Yes Vital Signs Reviewed: Yes - Physical Exam Appears: Positive for: No Acute Distress Head Exam: Positive for: ATRAUMATIC, NORMAL INSPECTION, NORMOCEPHALIC Skin: Positive for: Normal Color Eye Exam: Positive for: Normal appearance ENT: Positive for: Normal ENT Inspection, TM Is/Are (intact). Negative for: Pharyngeal Erythema, Tonsillar Exudate, Tonsillar Swelling Neck: Positive for: Normal Cardiovascular/Chest: Positive for: Regular Rate, Rhythm Respiratory: Positive for: Normal Breath Sounds. Negative for: Decreased Breath Sounds, Respiratory Distress Extremity: Positive for: Normal ROM (Upper/Lower) Neurologic/Psych: Positive for: Alert, Oriented Medical Decision Making Medical Decision Making: Time: 1542 Plan: CMP Lipase CBC IV Fluids [Tylenol 325 mg Tab] 650 mg PO Zofran Inj 4 mg IVP Urine Culture Influenza A B Rapid Strep Group A Antigen UA Date of service: 04/17/2018 PROCEDURE: CT Abdomen and Pelvis with contrast HISTORY: r/o diverticulosis COMPARISON: None available. TECHNIQUE: Contrast dose: 95 mL Omnipaque 300 IV Radiation dose: Total exam DLP = 535.04 mGy-cm. This CT exam was performed using one or more of the following dose reduction techniques: Automated exposure control, adjustment of the mA and/or kV according to patient size, and/or use of iterative reconstruction technique. FINDINGS: LOWER THORAX: Bibasilar atelectasis. No visible pleural effusion or pneumothorax. Small hiatal hernia/distal esophageal wall thickening. LIVER: Unremarkable. GALLBLADDER AND BILE DUCTS: Unremarkable. PANCREAS: Unremarkable. SPLEEN: Unremarkable. ADRENALS: Unremarkable. KIDNEYS AND URETERS: The kidneys enhance symmetrically. No hydronephrosis or obstructing calculus identified. 11 mm right upper pole cyst. Too small to characterize bilateral renal hypodensities; statistically likely cysts. VASCULATURE: No aortic aneurysm. No atherosclerotic calcification or mural plaque present. BOWEL: Stomach is nondistended. Lack of oral contrast limits evaluation for bowel pathology. Bowel loops appear within normal limits of caliber without evidence of obstruction. Small bowel wall thickening noted predominantly involving jejunum; correlate clinically for enteritis. APPENDIX: The appendix appears within normal limits of caliber. No secondary signs of acute appendicitis. PERITONEUM: No significant free fluid. No definite free air. LYMPH NODES: No bulky adenopathy identified. BLADDER: Mildly thick-walled urinary bladder. REPRODUCTIVE: The prostate gland measures approximately 3.3 x 4.0 cm. BONES: No acute osseous abnormality is detected. OTHER FINDINGS: Bilateral gynecomastia. IMPRESSION: Small bowel wall thickening, predominantly jejunum; correlate clinically for enteritis. Mildly thick-walled urinary bladder. Recommend correlation with urinalysis. Additional incidental findings as above. Scribe Attestation: Documented by Jamie Starr, acting as a scribe for Farhat RONQUILLO. Provider Scribe Attestation: All medical record entries made by the Scribe were at my direction and personally dictated by me. I have reviewed the chart and agree that the record accurately reflects my personal performance of the history, physical exam, medical decision making, and the department course for this patient. I have also personally directed, reviewed, and agree with the discharge instructions and disposition. - Laboratory Results Result Diagrams: 04/17/18 16:12 04/17/18 16:12 - ECG O2 Sat by Pulse Oximetry: 97 Disposition - Clinical Impression Clinical Impression: Enteritis - Patient ED Disposition Is Patient to be Admitted: No Doctor Will See Patient In The: Office Counseled Patient/Family Regarding: Diagnosis, Need For Followup, Rx Given - Disposition Referrals: [facility] [Outside] Disposition: Routine/Home Disposition Time: 22:56 Condition: STABLE Prescriptions: Metronidazole 500 mg PO BID #14 tablet Ondansetron ODT [Zofran ODT] 4 mg PO PRN PRN #12 odt PRN Reason: Nausea/Vomiting Instructions: Diarrhea in Adolescents and Adults, Colitis (DC) Forms: [employer] (Setswana)
[2018-04-17] MEDS ORDERED: Sodium Chloride 0.9% 1,000 ML IV SCH ×2 (15:45→18:45)
[2018-04-17 16:29] LABS: BASO % 0.4 % (0.0-2.0); EOS % 0.2 % (0.0-4.0); HEMOGLOBIN 16.5 g/dL (12.0-18.0); LYMPH # 0.7 K/uL (1.0-4.3); LYMPH % 5.5 % (20.0-40.0); MEAN CELL VOLUME 89.1 fl (80.0-94.0); MEAN CORPUSCULAR HEMOGLOBIN 29.7 pg (27.0-31.0); MEAN CORPUSCULAR HGB CONC 33.4 g/dL (33.0-37.0); MEAN PLATELET VOLUME 7.9 fl (7.2-11.7); MONO # 0.4 K/uL (0.0-0.8); MONO % 3.3 % (0.0-10.0); NEUT # 11.6 K/uL (1.8-7.0); NEUT % 90.6 % (50.0-75.0); PLATELET COUNT 230 K/uL (130-400); RBC 5.53 Mil/uL (4.40-5.90); RED CELL DISTRIBUTION WIDTH 14.1 % (11.5-14.5); WHITE BLOOD COUNT 12.8 K/uL (4.8-10.8)
[2018-04-17 16:51] LABS: LYMPHOCYTE 6 % (20-50); MONOCYTE 2 % (0-10); NEUTROPHIL 92 % (42-75); TOTAL CELLS COUNTED 100
[2018-04-17 16:52] LABS: PLATELET ESTIMATE NORMAL (NORMAL)
[2018-04-17 16:55] LABS: ALB/GLOB RATIO 1.4 (1.0-2.1); ALBUMIN 4.6 g/dL (3.5-5.0); ALT/SGPT 42 U/L (21-72); AST/SGOT 34 U/L (17-59); BLOOD UREA NITROGEN 17 mg/dl (9-20); CALCIUM 9.6 mg/dL (8.4-10.2); GFR NON-AFRICAN AMERICAN > 60; LIPASE 79 U/L (23-300)
[2018-04-17] MEDS ORDERED: Sodium Chloride 0.9% 50 ML IV ONE (17:24)
[2018-04-17] MEDS ORDERED: Iohexol 300 100 ML IJ ONE (17:24)
--- NOTE | 2018-04-17 18:18 | CT ---
Date of service: 04/17/2018 PROCEDURE: CT Abdomen and Pelvis with contrast HISTORY: r/o diverticulosis COMPARISON: None available. TECHNIQUE: Contrast dose: 95 mL Omnipaque 300 IV Radiation dose: Total exam DLP = 535.04 mGy-cm. This CT exam was performed using one or more of the following dose reduction techniques: Automated exposure control, adjustment of the mA and/or kV according to patient size, and/or use of iterative reconstruction technique. FINDINGS: LOWER THORAX: Bibasilar atelectasis. No visible pleural effusion or pneumothorax. Small hiatal hernia/distal esophageal wall thickening. LIVER: Unremarkable. GALLBLADDER AND BILE DUCTS: Unremarkable. PANCREAS: Unremarkable. SPLEEN: Unremarkable. ADRENALS: Unremarkable. KIDNEYS AND URETERS: The kidneys enhance symmetrically. No hydronephrosis or obstructing calculus identified. 11 mm right upper pole cyst. Too small to characterize bilateral renal hypodensities; statistically likely cysts. VASCULATURE: No aortic aneurysm. No atherosclerotic calcification or mural plaque present. BOWEL: Stomach is nondistended. Lack of oral contrast limits evaluation for bowel pathology. Bowel loops appear within normal limits of caliber without evidence of obstruction. Small bowel wall thickening noted predominantly involving jejunum; correlate clinically for enteritis. APPENDIX: The appendix appears within normal limits of caliber. No secondary signs of acute appendicitis. PERITONEUM: No significant free fluid. No definite free air. LYMPH NODES: No bulky adenopathy identified. BLADDER: Mildly thick-walled urinary bladder. REPRODUCTIVE: The prostate gland measures approximately 3.3 x 4.0 cm. BONES: No acute osseous abnormality is detected. OTHER FINDINGS: Bilateral gynecomastia. IMPRESSION: Small bowel wall thickening, predominantly jejunum; correlate clinically for enteritis. Mildly thick-walled urinary bladder. Recommend correlation with urinalysis. Additional incidental findings as above.
[2018-04-17 19:08] LABS: SQUAMOUS EPITHIAL < 1 /hpf (0-5); URINE BILIRUBIN NEGATIVE (NEGATIVE); URINE BLOOD LARGE (NEGATIVE); URINE CLARITY CLEAR (Clear); URINE COLOR STRAW (YELLOW); URINE GLUCOSE (UA) NEG (NEGATIVE); URINE LEUKOCYTE ESTERASE NEG Leu/uL (Negative); URINE PROTEIN NEGATIVE (NEGATIVE); URINE UROBILINOGEN 0.2-1.0 mg/dL (0.2-1.0)
[2018-04-17 19:09] LABS: URINE BACTERIA FEW (<OCC)
[2018-04-17 19:13] VITALS: BP 139/85; PULSE 100; RESP 16
[2018-04-17 20:58] VITALS: TEMP 98.4
[2018-04-17 22:57] VITALS: O2SAT 97
== END 2018-04-17 23:03 | disposition home or self-care (01) ==
LOC: H.ER 14:41
DX: K52.9 Noninfective gastroenteritis and colitis, unspecified (principal); Z82.49 Family history of ischemic heart disease and other diseases of the circulatory system; Z86.59 Personal history of other mental and behavioral disorders; I12.9 Hypertensive chronic kidney disease with stage 1 through stage 4 chronic kidney disease, or unspecified chronic kidney disease; N18.9 Chronic kidney disease, unspecified; Z79.899 Other long term (current) drug therapy
CPT/HCPCS: 74177; 80053; 81003; 83690; 85025; 87070; 87086; 87390; 87430; 87804; 96361; 96374; 96376; 99283; J2405; J7030; Q9967